=== PATIENT | male | born 2000 | race African-American/Black ===

== ENCOUNTER 2024-09-27 13:03 | Emergency (ER) | payer OTHER ==
[~2024-09-27] VITALS: Ht 175.2 cm; Wt 77.1 kg
[~2024-09-27 13:03] MED LIST: ONDANSETRON4 MG SL
[2024-09-27] MEDS ORDERED: EPINEPHrine Hydrochloride 1 MG/ML AMP IM ONE (13:10)
[2024-09-27] MEDS ORDERED: diphenhydrAMINE hydrochloride 50 MG/ML VIAL IV ONE (13:20)
[2024-09-27] MEDS ORDERED: FAMOTIDINE 50 ML IV ONE (13:20)
[2024-09-27] MEDS ORDERED: Water, Sterile 10 ML VIAL ONE (13:42)
[2024-09-27] MEDS ORDERED: PREDNISONE50 MG PO (16:46)
[2024-09-27] MEDS ORDERED: EPIPEN 2-P0.3 MG/0.3 IJ (16:46)
== END 2024-09-27 16:31 | disposition home or self-care (01) ==
LOC: ED 13:03
DX: T63.461A Toxic effect of venom of wasps, accidental (unintentional), initial encounter (principal); T78.2XXA Anaphylactic shock, unspecified, initial encounter; R06.02 Shortness of breath; R13.10 Dysphagia, unspecified; R42 Dizziness and giddiness; Z88.8 Allergy status to other drugs, medicaments and biological substances; X58.XXXA Exposure to other specified factors, initial encounter

== ENCOUNTER 2024-11-24 10:26 | Emergency (ER) | payer OTHER ==
[~2024-11-24 10:26] MED LIST changes: +EPIPEN 2-P0.3 MG/0.3 IJ; +PREDNISONE50 MG PO
[2024-11-24] MEDS ORDERED: REXULTI1 MG PO (11:12)
[2024-11-24] MEDS ORDERED: ATARAX,VISTARIL10 MG PO (11:12)
== END 2024-11-24 10:47 | disposition left against medical advice (07) ==
LOC: ED 10:26
DX: R45.851 Suicidal ideations (principal); Z53.21 Procedure and treatment not carried out due to patient leaving prior to being seen by health care provider

== ENCOUNTER 2024-11-24 11:08 | Emergency (ER) | payer OTHER ==
[2024-11-24] MEDS ORDERED: REXULTI1 MG PO (11:12)
[2024-11-24] MEDS ORDERED: ATARAX,VISTARIL10 MG PO (11:12)
[2024-11-24 12:11] LABS: BILIRUBIN Negative (Negative); BLOOD Negative (Negative); CLARITY Clear (Clear); COLOR Yellow (Yellow); KETONE Trace (Negative); LEUKO ESTERASE Negative (Negative); NITRITE Negative (Negative); PH 6.0 (4.5-8.0); SPECIFIC GRAVITY >= 1.030 (1.001-1.030); UROBILINOGEN 1.0 E.U./dl (0.0-1.0)
[2024-11-24 12:13] LABS: BASO # 0.0 10*3/uL (0.0-0.1); BASO % 0.2 % (0.0-1.0); EOS # 0.0 10*3/uL (0.0-0.4); EOS % 0.2 % (1.0-4.0); MEAN CELL VOLUME 94.6 fl (80.0-94.0); MEAN CORPUSCULAR HGB 31.0 pg (27.0-31.0); MEAN PLATELET VOLUME 8.7 fl (9.6-12.3); MONO # 0.4 10*3/uL (0.1-1.0); MONO % 9.1 % (3.0-9.0); NEUT # 3.3 10*3/uL (2.3-7.9); NEUT % 70.1 % (47.0-73.0); NUCLEATED RED BLOOD CELL 0.0 % (0.0-0.0); NUCLEATED RED BLOOD CELL 0.0 10*3/uL (0.0-0.0); PLATELET COUNT AUTOMATED 272 10*3/uL (130-400); RED CELL DISTRI WIDTH 11.4 % (0-14.5)
[2024-11-24 12:18] LABS: URINE AMPHETAMINES Negative (1000ng/ml); URINE BARBITURATES Negative (200ng/ml); URINE BENZODIAZEPINES Negative (200ng/ml); URINE CANNABINOIDS (THC) Positive (50ng/ml); URINE COCAINE Negative (300ng/ml); URINE METHADONE Negative (300ng/ml); URINE OPIATES Negative (300ng/ml); URINE PHENCYCLIDINE Negative (25ng/ml)
[2024-11-24 12:25] LABS: BACTERIA 1+; MUCOUS 1+; RBC 0-2 rbc/hpf (0-2); WBC 0-2 wbc/hpf (0-5)
[2024-11-24 12:34] LABS: BUN 11 mg/dl (9-23)
[2024-11-24 12:40] LABS: ETHYL ALCOHOL < 3.0 mg/dl (<3)
== END 2024-11-24 13:11 | disposition home or self-care (01) ==
LOC: ED 11:08
PROVIDERS: Nurse Practitioner Family
DX: F43.21 Adjustment disorder with depressed mood (principal); F31.9 Bipolar disorder, unspecified; F90.9 Attention-deficit hyperactivity disorder, unspecified type; Z88.8 Allergy status to other drugs, medicaments and biological substances; Z79.899 Other long term (current) drug therapy